=== PATIENT | male | born 1985 | race Caucasian/White ===

== ENCOUNTER 2019-07-17 09:53 | Emergency (ER) | payer OTHER, SELFPAY ==
--- NOTE | 2019-07-17 10:04 | ED.SEIZURE ---
HPI - Seizure General Chief Complaint: Seizure Stated Complaint: witnessed seizure, now a/o Time Seen by Provider: 07/17/19 10:03 Source: patient, family (brother) and EMS Mode of arrival: EMS Limitations: no limitations History of Present Illness HPI Narrative: This is a 34-year-old male comes emergency department with complaint of seizure. Seizure was witnessed by his brother he got up for the morning going to sit down on the couch and when he woke up he was surrounded by medics. His brother states that he noticed that his brother were shaking he describes or tonic-clonic activity with patient not really moving his 1 side very much. This lasted for about 5 minutes and then resolved. He describes what sounds like a postictal episode where patient knew his name but was otherwise confused and he slowly cleared and is now back to his baseline according to the patient as well as his brother who is at bedside. Patient has had 1 prior seizure about a year and a half ago. He states he has also had an ischemic stroke. He states he was on blood thinners but that was stopped by his care team. He does not take any anticonvulsants. Patient states that he does not have any complaints currently. He feels like he is back to normal does not have any injuries. He does have a small abrasion on his tongue. Patient states that he was in the and was discharged because of his medical issues. He does smoke tobacco, denies any alcohol. He does sometimes use marijuana. Denies any other new medications or medication dosage changes. He states he has been on his medication for about 2 years. He has seen a neurologist in the but has not seen them for about a year. They are at [facility]. Related Data Home Medications Medication Instructions Recorded Confirmed paroxetine HCl [Paxil] 20 mg PO BEDTIME 07/17/19 07/17/19 Allergies Allergy/AdvReac Type Severity Reaction Status Date / Time No Known Drug Allergies Allergy Verified 07/17/19 10:47 Review of Systems Review of Systems ROS Unobtainable: All systems reviewed & are unremarkable except as noted in HPI and below Constitutional Denies chills, Denies fever(s), Denies headache(s), Denies lethargy and Denies weakness Eyes Denies change in vision ENT Ears, Nose, Mouth, and Throat: Denies headache(s) and Denies tongue swelling Cardiovascular Denies chest pain and Denies dyspnea Respiratory Denies chest congestion, Denies cough and Denies dyspnea Gastrointestinal Gastrointestinal: Denies abdominal pain, Denies change in bowel habits, Denies diarrhea, Denies nausea and Denies vomiting Genitourinary Denies hematuria, Denies difficulty urinating, Denies dysuria, Denies flank pain, Denies urinary frequency, Denies urinary incontinence and Denies urinary urgency Musculoskeletal Denies back pain, Denies muscle weakness, Denies numbness and Denies tingling Integumentary/Breasts Denies rash Neurologic Reports as per HPI, Denies headache(s), Denies focal weakness, Denies numbness, Reports seizure-like activity, Denies sensory deficit, Denies tingling and Denies weakness Allergic/Immunologic Denies tongue swelling [facility] Medical History (Updated 07/17/19 @ 10:14 by Marlyn Lakhani DO) CVA (cerebral vascular accident) (Chronic) Seizure disorder (Chronic) Social History Smoking Status: Never smoker Social History (Updated 07/17/19 @ 10:08 by Marlyn Lakhani DO) Smoking Status: Never smoker alcohol intake: never substance use type: marijuana Exam Narrative Exam Narrative: GEN: well nourished, well appearing , alert and oriented x 3, patient appears to be in no acute distress. HEENT: Atraumatic, pupils are equal round reactive to light, extraocular movements are intact, nares are clear, TMs are clear with no fluid, there is no conjunctival pallor. Throat is clear without any exudates, erythema, tonsillar enlargement or uvular deviation, patient has a small abrasion on the left lateral side of the tongue. HEART: Regular rate and rhythm without murmur, clicks, rubs. Pulses are equal in upper and lower extremities LUNGS:Lungs clear to auscultation, no wheezes, rales, crackles, chest moves symmetrically ABD:bowel sounds normal, soft, non-tender, no guarding, rebound, rigidity, no masses noted, no hepatosplenomegaly MSCL: Non-tender, no muscle atrophy, muscles strength 5/5 upper and lower extremities, full range of motion, normal gait NEURO:CN 2-12 intact, sensation normal, reflexes 2/4 upper and lower extremities. finger nose finger test normal, heel johnson test normal, romberg normal Initial Vital Signs Initial Vital Signs: Vital Signs Temperature 97.8 F 07/17/19 10:08 Pulse Rate 67 07/17/19 10:08 Respiratory Rate 14 07/17/19 10:08 Blood Pressure 121/82 07/17/19 10:08 Pulse Oximetry 99 07/17/19 10:08 Scores GCS [place] coma scale eye opening: Spontaneous [place] coma scale verbal response: Orientated [place] coma scale motor response: Obey commands [place] coma scale total score: 15 Course Orders Ordered: ED Orders 07/17/19 10:04 Urine Drug Screen, Rapid Stat EKG-12 Lead Stat 07/17/19 10:25 Basic Metabolic Panel Stat Complete Blood Count AUTO DIFF Stat Ethanol (ETOH) Stat Magnesium Stat Prolactin Stat Discontinued Medications Sodium Chloride (Normal Saline 0.9%) 1,000 mls @ 1,000 mls/hr IV BOLUS ONE Stop: 07/17/19 11:02 Last Infusion: 07/17/19 11:49 Dose: 1,000 mls/hr Admin: 07/17/19 10:48 Dose: 1,000 mls/hr Vital Signs - 8 hr 07/17/19 10:30 07/17/19 11:35 Pulse Rate 76 79 Respiratory Rate 22 19 Blood Pressure [Left Arm] 108/72 114/71 Pulse Oximetry 96 98 MDM - Seizure Lab Data Result diagrams: 07/17/19 10:25 07/17/19 10:25 Lab Results 07/17/19 07/17/19 07/17/19 Range/Units 10:04 10:25 10:25 WBC 10.8 (4.5-11.0) X10^3/uL RBC 5.06 (4.5-5.9) X10^6/uL Hgb 15.6 (13.5-17.5) g/dL Hct 44.5 (41-53) % MCV 87.9 (80-100) fL MCH 30.9 (26-34) PG MCHC 35.1 (30-36) % RDW 13.1 (11.6-14.8) % Plt Count 154 (150-400) X10^3/uL Neut % (Auto) 84.9 H (50-75) % Lymph % (Auto) 7.5 L (25-40) % [place] % (Auto) 5.0 (3-14) % Eos % (Auto) 1.9 L (2-4) % Baso % (Auto) 0.7 (0-2) % Neut # (Auto) 9200 H (8844-5312) /uL Lymph # (Auto) 800 L (5983-9222) /uL [place] # (Auto) 500 (0-900) /uL Eos # (Auto) 200 (0-450) /uL Baso # (Auto) 100 (0-100) /uL Sodium (137-145) mmol/L Potassium (3.4-5.1) mmol/L Chloride (98-107) mmol/L Carbon Dioxide (22-32) mmol/L BUN (9-20) mg/dL Creatinine (0.66-1.25) mg/dL Estimated GFR (>60) mL/min BUN/Creatinine Ratio (6-22) Glucose (70-100) mg/dL Calcium (8.4-10.2) mg/dL Magnesium (1.6-2.3) mg/dL Prolactin (3.7-17.9) ng/mL Urine Opiates Screen Negative (Negative) Ur Oxycodone Screen Negative (Negative) Urine Methadone Screen Negative (Negative) Ur Barbiturates Screen Negative (Negative) U Tricyclic Antidepress Negative (Negative) Ur Phencyclidine Scrn Negative (Negative) Ur Amphetamines Screen Negative (Negative) U Methamphetamines Scrn Negative (Negative) Ur MDMA Scrn (Ecstasy) Negative (Negative) U Benzodiazepines Scrn Negative (Negative) Urine Cocaine Screen Negative (Negative) U Marijuana (THC) Screen Positive H (Negative) Ethyl Alcohol < 10 ( - 10) mg/dL 07/17/19 Range/Units 10:25 WBC (4.5-11.0) X10^3/uL RBC (4.5-5.9) X10^6/uL Hgb (13.5-17.5) g/dL Hct (41-53) % MCV (80-100) fL MCH (26-34) PG MCHC (30-36) % RDW (11.6-14.8) % Plt Count (150-400) X10^3/uL Neut % (Auto) (50-75) % Lymph % (Auto) (25-40) % [place] % (Auto) (3-14) % Eos % (Auto) (2-4) % Baso % (Auto) (0-2) % Neut # (Auto) (0136-5506) /uL Lymph # (Auto) (3832-8010) /uL [place] # (Auto) (0-900) /uL Eos # (Auto) (0-450) /uL Baso # (Auto) (0-100) /uL Sodium 139 (137-145) mmol/L Potassium 4.9 (3.4-5.1) mmol/L Chloride 105 (98-107) mmol/L Carbon Dioxide 24 (22-32) mmol/L BUN 15 (9-20) mg/dL Creatinine 0.80 (0.66-1.25) mg/dL Estimated GFR > 60.0 (>60) mL/min BUN/Creatinine Ratio 18.8 (6-22) Glucose 94 (70-100) mg/dL Calcium 9.5 (8.4-10.2) mg/dL Magnesium 2.3 (1.6-2.3) mg/dL Prolactin 9.6 (3.7-17.9) ng/mL Urine Opiates Screen (Negative) Ur Oxycodone Screen (Negative) Urine Methadone Screen (Negative) Ur Barbiturates Screen (Negative) U Tricyclic Antidepress (Negative) Ur Phencyclidine Scrn (Negative) Ur Amphetamines Screen (Negative) U Methamphetamines Scrn (Negative) Ur MDMA Scrn (Ecstasy) (Negative) U Benzodiazepines Scrn (Negative) Urine Cocaine Screen (Negative) U Marijuana (THC) Screen (Negative) Ethyl Alcohol ( - 10) mg/dL Point of Care Testing Glucose POC 133 Urine Dip Bedside Urine Glucose Negative Bedside Urine Bilirubin - Negative Bedside Urine Ketone +/- 5 Urine Specific [place] 1.030 Bedside Urine Occult Blood - Negative Bedside Urine pH 6.0 Bedside Urine Protein +/- 15 Bedside Urine Urobilinogen +/- 1mg Bedside Urine Nitrite - Negative Bedside Urine Leukocytes - Negative Esterase ECG Data Attestation: I personally reviewed and interpreted this ECG as follows: Prior ECG tracings: not available for review Interpretation: Sinus rhythm with rate of 67 [place] 167 QRS 83 and QTC 397. Patient has no acute ST changes. No prior available MDM Narrative Medical decision making narrative: Patient had what is described as generalized tonoclonic activity that was witnessed the postictal period which has since resolved. His neurologic exam is otherwise normal. He has been diagnosed with seizure disorder in the past has had prior seizures. I had possibly history of CVA and was on blood thinners but no longer is. Attempting to get some records from [facility]. Discussed with patient with a single episode of seizure-like activity and normal neurologic exam at this time could defer CT unless he has new changes. We will get labs IV fluids and re-evaluate. Discharge Plan Departure Patient Disposition: Home Clinical Impression: Seizure Discharge Date/Time: 07/17/19 11:50 Interventions: ED Discharge Assessment Last Done: 07/17/19 11:49 Instructions: DI for Seizure Disorder -- Adult Activity Restrictions/Additional Instructions: Follow up with primary care and/or your neurology team in the next week. Call for an appointment. Also included is a local neurologist if you prefer. They are based in [place]. Continue with home medications as prescribed. I would discuss this with your physician as this medication increases risk of seizure activity. Make sure you are drinking plenty of fluids, getting regular sleep and avoid stimulants, alcohol or other illicit drugs. Return to the emergency department for fevers greater than a 100.4 F, recurrent seizures particularly if you have more than 1 back to back or do not return to baseline in between, altered mental status, persistent vomiting, sudden severe headaches, new weakness, numbness, difficulty with speech or vision changes or other new or concerning symptoms. Prescriptions: No Action paroxetine HCl [Paxil] 20 mg Tablet 20 mg PO BEDTIME RF: 0 Referrals: Ac Collado MD [Non-Staff] -
[2019-07-17 10:08] VITALS: BP 121/82; PULSE 67; RESP 14; TEMP 36.6; O2SAT 99
--- NOTE | 2019-07-17 10:10 | ED_ITS ---
HPI - Seizure General Chief Complaint: Seizure Stated Complaint: witnessed seizure, now a/o Time Seen by Provider: 07/17/19 10:03 Source: patient, family (brother) and EMS Mode of arrival: EMS Limitations: no limitations History of Present Illness HPI Narrative: This is a 34-year-old male comes emergency department with complaint of seizure. Seizure was witnessed by his brother he got up for the morning going to sit down on the couch and when he woke up he was surrounded by medics. His brother states that he noticed that his brother were shaking he describes or tonic-clonic activity with patient not really moving his 1 side very much. This lasted for about 5 minutes and then resolved. He describes what sounds like a postictal episode where patient knew his name but was otherwise confused and he slowly cleared and is now back to his baseline according to the patient as well as his brother who is at bedside. Patient has had 1 prior seizure about a year and a half ago. He states he has also had an i schemic stroke. He states he was on blood thinners but that was stopped by his care team. He does not take any anticonvulsants. Patient states that he does not have any complaints currently. He feels like he is back to normal does not have any injuries. He does have a small abrasion on his tongue. Patient states that he was in the and was discharged because of his medical issues. Bridget garcia does smoke tobacco, denies any alcohol. He does sometimes use marijuana. Denies any other new medications or medication dosage changes. He states he has been on his medication for about 2 years. He has seen a neurologist in the but has not seen them for about a year. They are at [facility]. Related Data Home Medications Medication Instructions Recorded Confirmed paroxetine HCl [Paxil] 20 mg PO BEDTIME 07/17/19 07/17/19 Allergies Allergy/AdvReac Type Severity Reaction Status Date / Time No Known Drug Allergies Allergy Verified 07/17/19 10:47 Review of Systems Review of Systems ROS Unobtainable: All systems reviewed & are unremarkable except as noted in HPI and below Constitutional Denies chills, Denies fever(s), Denies headache(s), Denies lethargy and Denies weakness Eyes Denies change in vision ENT Ears, Nose, Mouth, and Throat: Denies headache(s) and Denies tongue swelling Cardiovascular Denies chest pain and Denies dyspnea Respiratory Denies chest congestion, Denies cough and Denies dyspnea Gastrointestinal Gastrointestinal: Denies abdominal pain, Denies change in bowel habits, Denies diarrhea, Denies nausea and Denies vomiting Genitourinary Denies hematuria, Denies difficulty urinating, Denies dysuria, Denies flank pain, Denies urinary frequency, Denies urinary incontinence and Denies urinary urgency Musculoskeletal Denies back pain, Denies muscle weakness, Denies numbness and Denies tingling Integumentary/Breasts Denies rash Neurologic Reports as per HPI, Denies headache(s), Denies focal weakness, Denies numbness, Reports seizure-like activity, Denies sensory deficit, Denies tingling and Denies weakness Allergic/Immunologic Denies tongue swelling [facility] Medical History (Updated 07/17/19 @ 10:14 by Marlyn Lakhani DO) CVA (cerebral vascular accident) (Chronic) Seizure disorder (Chronic) Social History Smoking Status: Never smoker Social History (Updated 07/17/19 @ 10:08 by Marlyn Lakhani DO) Smoking Status: Never smoker alcohol intake: never substance use type: marijuana Exam Narrative Exam Narrative: GEN: well nourished, well appearing , alert and oriented x 3, patient appears to be in no acute distress. HEENT: Atraumatic, pupils are equal round reactive to light, extraocular movements are intact, nares are clear, TMs are clear with no fluid, there is no conjunctival pallor. Throat is clear without any exudates, erythema, tonsillar enlargement or uvular deviation, patient has a small abrasion on the left lateral side of the tongue. HEART: Regular rate and rhythm without murmur, clicks, rubs. Pulses are equal in upper and lower extremities LUNGS:Lungs clear to auscultation, no wheezes, rales, crackles, chest moves symmetrically ABD:bowel sounds normal, soft, non-tender, no guarding, rebound, rigidity, no masses noted, no hepatosplenomegaly MSCL: Non-tender, no muscle atrophy, muscles strength 5/5 upper and lower extr emities, full range of motion, normal gait NEURO:CN 2-12 intact, sensation normal, reflexes 2/4 upper and lower extremities. finger nose finger test normal, heel johnson test normal, romberg normal Initial Vital Signs Initial Vital Signs: Vital Signs Temperature 97.8 F 07/17/19 10:08 Pulse Rate 67 07/17/19 10:08 Respiratory Rate 14 07/17/19 10:08 Blood Pressure 121/82 07/17/19 10:08 Pulse Oximetry 99 07/17/19 10:08 Scores GCS [place] coma scale eye opening: Spontaneous [place] coma scale verbal response: Orientated [place] coma scale motor response: Obey commands [place] coma scale total score: 15 Course Orders Ordered: ED Orders 07/17/19 10:04 Urine Drug Screen, Rapid Stat EKG-12 Lead Stat 07/17/19 10:25 Basic Metabolic Panel Stat Complete Blood Count AUTO DIFF Stat Ethanol (ETOH) Stat Magnesium Stat Prolactin Stat Discontinued Medications Sodium Chloride (Normal Saline 0.9%) 1,000 mls @ 1,000 mls/hr IV BOLUS ONE Stop: 07/17/19 11:02 Last Infusion: 07/17/19 11:49 Dose: 1,000 mls/hr Admin: 07/17/19 10:48 Dose: 1,000 mls/hr Vital Signs - 8 hr 07/17/19 10:30 07/17/19 11:35 Pulse Rate 76 79 Respiratory Rate 22 19 Blood Pressure [Left Arm] 108/72 114/71 Pulse Oximetry 96 98 MDM - Seizure Lab Data Result diagrams: 07/17/19 10:25 07/17/19 10:25 Lab Results 07/17/19 07/17/19 07/17/19 Range/Units 10:04 10:25 10:25 WBC 10.8 (4.5-11.0) X10^3/uL RBC 5.06 (4.5-5.9) X10^6/uL Hgb 15.6 (13.5-17.5) g/dL Hct 44.5 (41-53) % MCV 87.9 (80-100) fL MCH 30.9 (26-34) PG MCHC 35.1 (30-36) % RDW 13.1 (11.6-14.8) % Plt Count 154 (150-400) X10^3/uL Neut % (Auto) 84.9 H (50-75) % Lymph % (Auto) 7.5 L (25-40) % [place] % (Auto) 5.0 (3-14) % Eos % (Auto) 1.9 L (2-4) % Baso % (Auto) 0.7 (0-2) % Neut # (Auto) 9200 H (4729-3851) /uL Lymph # (Auto) 800 L (3009-0998) /uL [place] # (Auto) 500 (0-900) /uL Eos # (Auto) 200 (0-450) /uL Baso # (Auto) 100 (0-100) /uL Sodium (137-145) mmol/L Potassium (3.4-5.1) mmol/L Chloride (98-107) mmol/L Carbon Dioxide (22-32) mmol/L BUN (9-20) mg/dL Creatinine (0.66-1.25) mg/dL Estimated GFR (>60) mL/min BUN/Creatinine Ratio (6-22) Glucose (70-100) mg/dL Calcium (8.4-10.2) mg/dL Magnesium (1.6-2.3) mg/dL Prolactin (3.7-17.9) ng/mL Urine Opiates Screen Negative (Negative) Ur Oxycodone Screen Negative (Negative) Urine Methadone Screen Negative (Negative) Ur Barbiturates Screen Negative (Negative) U Tricyclic Antidepress Negative (Negative) Ur Phencyclidine Scrn Negative (Negative) Ur Amphetamines Screen Negative (Negative) U Methamphetamines Scrn Negative (Negative) Ur MDMA Scrn (Ecstasy) Negative (Negative) U Benzodiazepines Scrn Negative (Negative) Urine Cocaine Screen Negative (Negative) U Marijuana (THC) Screen Positive H (Negative) Ethyl Alcohol < 10 ( - 10) mg/dL 07/17/19 Range/Units 10:25 WBC (4.5-11.0) X10^3/uL RBC (4.5-5.9) X10^6/uL Hgb (13.5-17.5) g/dL Hct (41-53) % MCV (80-100) fL MCH (26-34) PG MCHC (30-36) % RDW (11.6-14.8) % Plt Count (150-400) X10^3/uL Neut % (Auto) (50-75) % Lymph % (Auto) (25-40) % [place] % (Auto) (3-14) % Eos % (Auto) (2-4) % Baso % (Auto) (0-2) % Neut # (Auto) (5292-2380) /uL Lymph # (Auto) (2452-0831) /uL [place] # (Auto) (0-900) /uL Eos # (Auto) (0-450) /uL Baso # (Auto) (0-100) /uL Sodium 139 (137-145) mmol/L Potassium 4.9 (3.4-5.1) mmol/L Chloride 105 (98-107) mmol/L Carbon Dioxide 24 (22-32) mmol/L BUN 15 (9-20) mg/dL Creatinine 0.80 (0.66-1.25) mg/dL Estimated GFR > 60.0 (>60) mL/min BUN/Creatinine Ratio 18.8 (6-22) Glucose 94 (70-100) mg/dL Calcium 9.5 (8.4-10.2) mg/dL Magnesium 2.3 (1.6-2.3) mg/dL Prolactin 9.6 (3.7-17.9) ng/mL Urine Opiates Screen (Negative) Ur Oxycodone Screen (Negative) Urine Methadone Screen (Negative) Ur Barbiturates Screen (Negative) U Tricyclic Antidepress (Negative) Ur Phencyclidine Scrn (Negative) Ur Amphetamines Screen (Negative) U Methamphetamines Scrn (Negative) Ur MDMA Scrn (Ecstasy) (Negative) U Benzodiazepines Scrn (Negative) Urine Cocaine Screen (Negative) U Marijuana (THC) Screen (Negative) Ethyl Alcohol ( - 10) mg/dL Point of Care Testing Glucose POC 133 Urine Dip Bedside Urine Glucose Negative Bedside Urine Bilirubin - Negative Bedside Urine Ketone +/- 5 Urine Specific [place] 1.030 Bedside Urine Occult Blood - Negative Bedside Urine pH 6.0 Bedside Urine Protein +/- 15 Bedside Urine Urobilinogen +/- 1mg Bedside Urine Nitrite - Negative Bedside Urine Leukocytes - Negative Esterase ECG Data Attestation: I personally reviewed and interpreted this ECG as follows: Prior ECG tracings: not available for review Interpretation: Sinus rhythm with rate of 67 [place] 167 QRS 83 and QTC 397. Patient has no acute ST changes. No prior available MDM Narrative Medical decision making narrative: Patient had what is described as generalized tonoclonic activity that was witnessed the postictal period which has since resolved. His neurologic exam is otherwise normal. He has been diagnosed with seizure disorder in the past has had prior seizures. I had possibly history of CVA and was on blood thinners but no longer is. Attempting to get some records from [facility]. Discussed with patient with a single episode of seizure-like activity and normal neurologic exam at this time could defer CT unless he has new changes. We will get labs IV fluids and re-evaluate. Discharge Plan Departure Patient Disposition: Home Clinical Impression: Seizure Discharge Date/Time: 07/17/19 11:50 Interventions: ED Discharge Assessment Last Done: 07/17/19 11:49 Instructions: DI for Seizure Disorder -- Adult Activity Restrictions/Additional Instructions: Follow up with primary care and/or your neurology team in the next week. Call for an appointment. Also included is a local neurologist if you prefer. They are based in [place]. Continue with home medications as prescribed. I would discuss this with your physician as this medication increases risk of seizure activity. Make sure you are drinking plenty of fluids, getting regular sleep and avoid stimulants, alcohol or other illicit drugs. Return to the emergency department for fevers greater than a 100.4 F, recurrent seizures particularly if you have more than 1 back to back or do not return to baseline in between, altered mental status, persistent vomiting, sudden severe headaches, new weakness, numbness, difficulty with speech or vision changes or other new or concerning symptoms. Prescriptions: No Action paroxetine HCl [Paxil] 20 mg Tablet 20 mg PO BEDTIME RF: 0 Referrals: Ac Collado MD [Non-Staff] -
[2019-07-17 10:30] VITALS: BP 108/72; PULSE 76; RESP 22; O2SAT 96
[2019-07-17 10:36] LABS: Add Manual Diff / Slide Review NO; Basophils Absolute Auto 100 /uL (0-100); Basophils Percent Auto 0.7 % (0-2); Eosinophils Absolute Auto 200 /uL (0-450); Eosinophils Percent Auto 1.9 % (2-4); Hematocrit 44.5 % (41-53); Hemoglobin 15.6 g/dL (13.5-17.5); Lymphocytes Absolute Auto 800 /uL (1100-4500); Lymphocytes Percent Auto 7.5 % (25-40); Mean Corpuscular HGB Conc 35.1 % (30-36); Mean Corpuscular Hemoglobin 30.9 PG (26-34); Mean Corpuscular Volume 87.9 fL (80-100); Monocytes Absolute Auto 500 /uL (0-900); Neutrophils Absolute Auto 9200 /uL (1500-7000); Neutrophils Percent Auto 84.9 % (50-75); Platelet Count 154 X10^3/uL (150-400); Red Blood Cell Count 5.06 X10^6/uL (4.5-5.9); Red Cell Distribution Width 13.1 % (11.6-14.8); White Blood Cell Count 10.8 X10^3/uL (4.5-11.0)
[2019-07-17 10:46] LABS: BUN Creatinine Ratio 18.8 (6-22); Blood Urea Nitrogen 15 mg/dL (9-20); Calcium 9.5 mg/dL (8.4-10.2); Carbon Dioxide 24 mmol/L (22-32); Chloride 105 mmol/L (98-107); Estimated Glomerular Filt Rate > 60.0 mL/min (>60); Ethanol (ETOH) < 10 mg/dL; Glucose 94 mg/dL (70-100); HEMOLYSIS < 15 (0-50); Magnesium 2.3 mg/dL (1.6-2.3); Potassium 4.9 mmol/L (3.4-5.1); Sodium 139 mmol/L (137-145)
[2019-07-17] MEDS: SODIUM CHLORIDE 0.9% 1,000 ML 1000 ML IV (10:48)
[2019-07-17 10:54] LABS: Urine Amphetamines Negative (Negative); Urine Barbiturates Negative (Negative); Urine Benzodiazepines Negative (Negative); Urine Cocaine Negative (Negative); Urine MDMA Negative (Negative); Urine Methadone Negative (Negative); Urine Methamphetamines Negative (Negative); Urine Morphine/Opi cutoff 2000 Negative (Negative); Urine Oxycodone Negative (Negative); Urine Phencyclidine Negative (Negative); Urine Tetrahydrocannabinol Positive (Negative); Urine Tricyclic Antidepressant Negative (Negative)
[2019-07-17 11:03] LABS: Prolactin 9.6 ng/mL (3.7-17.9)
[2019-07-17 11:35] VITALS: BP 114/71; PULSE 79; RESP 19; O2SAT 98
== END 2019-07-17 11:50 | disposition home or self-care (01) ==
LOC: ED 11:43
PROVIDERS: Emergency Provider Emergency Medicine
DX: R56.9 Unspecified convulsions (principal)
CPT/HCPCS: 36415; 80048; 80305; 80320; 81003; 83735; 84146; 85025; 93005; 96360; 99284

== ENCOUNTER 2021-03-31 00:11 | Observation (INO) | payer OTHER, MEDICAID, SELFPAY ==
[2021-03-31] VITALS (12 sets, daily range): BP systolic 135–161; BP diastolic 81–96; PULSE 53–77; RESP 14–20; TEMP 36.1–36.9; O2SAT 97–98; BMI 24.3
--- NOTE | 2021-03-31 | DI.ECHO.S_ITS ---
[facility] +---------+ : : [address] : : : : [id number] : : : : Phone: [phone] Echocardiogram Report + + :Name: MARI EUGENE Study Date: 03/31/2021 Height: 67 in : :[facility] ReadingLocation: Weight: 155 lb : : Gender: Male BSA: 1.8 m2 : :: 1985 Age: 36 yrs BP: 139/82 mmHg: :Reason For Study: stroke : :Ordering Physician: JUAN DAVID, : :YENNY Performed By: Vlad Alberto : :Referring: YENNY FALL : + + Interpretation Summary Left ventricular systolic function appears normal with an estimated ejection fraction of 60 to 65% without any focal wall motion abnormality. Left ventricular size and wall thickness appear normal. While assessment of diastolic function is challenging because of contradictory data, there is no compelling evidence for significantly increased filling pressures or diastolic dysfunction. The right ventricle appears normal in size and systolic function. Right ventricular systolic pressure cannot be estimated but CVP is likely around 3 mmHg. Both atria are normal in size and the interatrial septum appears intact without any evidence for an interatrial shunt by Doppler exam or injection of echo saline contrast although there is fairly poor contrast opacification, reducing the sensitivity of the study. There is no significant valvular abnormality. Procedure: The study quality was technically adequate. A two-dimensional transthoracic echocardiogram with color flow and Doppler was performed. There is no prior echocardiogram noted for this patient. The patient was in sinus rhythm with heart rates between 62-85 bpm during the exam. Left Ventricle: The left ventricle appears normal in size, wall thickness, and systolic function without any focal wall motion abnormalities. The ejection fraction is estimated to be 60-65%. Diastolic function could not be accurately assessed due to contradictory data. Right Ventricle: The right ventricle is normal in size and function. Atria: Both atria are normal in size. There is no Doppler evidence for an interatrial shunt. Injection of contrast documented no interatrial shunt. Although there is fairly poor contrast opacification reducing the sensitivity of the study. Mitral Valve: There is trace mitral regurgitation. Aortic Valve: The aortic valve is normal in structure and function. The aortic valve is trileaflet. The aortic valve opens well. No aortic regurgitation is present. Tricuspid Valve: The tricuspid valve is normal in structure and function. No tricuspid regurgitation. Pulmonary artery pressures cannot be estimated because of the lack of a measurable TR jet velocity but the IVC suggests a CVP of around 3 mmHg. Pulmonic Valve: The pulmonic valve is not well seen, but is grossly normal. There is no pulmonic valvular regurgitation. There is no significant valvular heart disease. Great Vessels: The aortic root is normal size. The dimensions of the ascending aorta are normal. The IVC is of normal diameter and collapses greater than 50% with a sniff. This suggests a low right atrial pressure of 3 mm Hg. Pericardium/ Pleura There is no pericardial effusion. There is no pleural effusion. MMode/2D Measurements & Calculations LVIDd: 5.0 cm LVOT diam: 2.4 cm LVIDs: 3.7 cm Ao root diam: 3.1 cm FS: 26.4 % asc Aorta Diam: 2.7 cm IVSd: 0.91 cm LVPWd: 0.97 cm LV qu[place]edo. diameter/BSA (cm/m^2): 2.8 LV sys. diameter/BSA (cm/m^2): 2.0 LA A2 area: 13.1 cm2 RA area: 12.5 cm2 LA A4 area: 14.5 cm2 LA length (vol): 4.0 cm LA vol: 40.0 ml LA vol index: 22.0 ml/m2 TAPSE: 1.7 cm Doppler Measurements & Calculations Ao V2 max: 103.0 cm/sec LVOT Max Mario Alberto: 83.9 cm/sec Ao V2 mean: 78.1 cm/sec LV V1 max P.8 mmHg Ao max P.2 mmHg LV V1 VTI: 18.2 cm Ao mean P.6 mmHg BECCA(I,D): 3.8 cm2 Ao V2 VTI: 21.6 cm BECCA(V,D): 3.7 cm2 sev ratio: 0.84 BECCA indexed to BSA (cm^2/m^2): 2.1 MV E max mario alberto: 125.4 cm/sec PA pr(Accel): 32.8 mmHg MV A max mario alberto: 128.8 cm/sec MV E/A: 0.97 Med Peak E' Mario Alberto: 6.1 cm/sec E/E' med: 20.4 Lat Peak E' Mario Alberto: 9.3 cm/sec E/E' lat: 13.5 E/e' average: 17.0 MV dec time: 0.31 sec [facility] 82.5 ml Reading Physician:01:15 PM
--- NOTE | 2021-03-31 01:19 | DI.CT.S_ITS ---
PROCEDURE: CT ANGIO HEAD AND NECK INDICATIONS: stroke symptoms, Right side numbness/dysarthria at 11:15 TECHNIQUE: Pre-contrast 4.5 mm thick sections acquired from the foramen magnum to the vertex. After the administration of intravenous contrast, 1 mm thick sections acquired from the aortic arch through the [place]. Post-contrast 4.5 mm thick sections then re-acquired from the foramen magnum to the vertex. 3-dimensional dpbkhsy-uwjmqxnbq-dsdmmgcrts (MIP) and/or volume rendering reformats were acquired of the central intracranial vasculature and neck separately. COMPARISON: None. FINDINGS: Image quality: Excellent. BRAIN: CSF spaces: Basal cisterns are patent. No extra-axial fluid collections. There is prominence of the sulci and extra-axial spaces as well as mild prominence of the ventricles consistent with mild cerebral volume loss out of proportion to patient's age. Brain: No intracranial hemorrhage, mass, or mass effect. There are small areas of encephalomalacia medially in the left frontal and occipital lobes. Slight leftward midline shift is noted likely due to left frontal cerebral volume loss. No definite abnormal intracranial enhancement. Skull and face: Calvarium and facial bones appear intact, without suspicious lesions. Orbits appear normal. Sinuses: Sinuses and mastoids are clear. HEAD CT ANGIOGRAPHY: Anterior circulation: Intracranial internal carotid arteries are normal in size and appear patent bilaterally. There is mild atherosclerotic calcification along the cavernous segments of the internal carotid arteries. The paired anterior cerebral arteries appear patent bilaterally. The anterior communicating artery also appears patent. The middle cerebral arteries appear patent bilaterally. No high-grade stenosis, occlusion, or filling defects. No cerebral aneurysms identified. The vessels appears smooth without focal strictures. Posterior circulation: Visualized portions of the vertebral arteries demonstrate normal caliber, and join to form a patent basilar artery. The posterior cerebral arteries appears patent bilaterally. No high-grade stenosis, occlusion, or filling defects. No cerebral aneurysms identified. NECK CT ANGIOGRAPHY: Carotid system: The great vessels demonstrate a conventional anatomy as they arise from the aortic arch. The origins of the common carotid arteries appear patent. The common carotid arteries demonstrate normal caliber and courses. The bifurcation regions are both widely patent. The internal carotid arteries demonstrate normal calibers and courses. The vessels appears smooth without focal strictures or wall thickening. Posterior circulation: The origins of the vertebral arteries both appear patent. The more superior extracranial portions of both vertebral arteries also demonstrate normal courses and calibers. They join to form a patent basilar artery. Vessels appears smooth throughout focal strictures or wall thickening. Soft tissues: Visualized neck soft tissues demonstrate no suspicious abnormalities. Bones: No suspicious bony lesions. Visualized cervical spine appears normally aligned. IMPRESSION: 1. No acute intracranial abnormality. 2. Medial areas of encephalomalacia within the left frontal and occipital lobes compatible with sequelae of prior infarcts or trauma. 3. Mild generalized cerebral volume loss out of proportion for age. 4. No high-grade stenosis or occlusion of the central intracranial arteries. No vascular strictures to suggest a vasculitis. 5. No high-grade stenosis or occlusion of the head and neck arteries. No vascular structures or wall thickening to suggest a vasculitis. Any quantitative measurements of stenosis were performed using NASCET criteria. Concordant with preliminary interpretation. Dictated by: Efraín Grigsby M.D. on 03/31/2021 at 8:07 Approved by: Efraín Grigsby M.D. on 03/31/2021 at 8:15
--- NOTE | 2021-03-31 01:21 | ED.NEUROSD ---
HPI - Neuro Symptoms/Deficit General Chief Complaint: Neuro Symptoms/Deficit Stated Complaint: poss stroke Time Seen by Provider: 03/31/21 00:11 Source: patient and EMS Mode of arrival: EMS Limitations: no limitations History of Present Illness HPI Narrative: 36-year-old gentleman with a history of multiple strokes in 2017 and stroke related epilepsy developing in 2019 currently on lacosamide 300 mg twice a day presents with 3 minutes of left-sided facial droop, dysarthria, left arm and leg weakness, dizziness and right adventist headache. Symptoms were noted immediately by his caregiver and medics were called. Caregiver notes that he did not have any seizure-like activity at the time and he had been doing well, at his usual baseline over the course of today. No fever, cough, chills, increased stressors or missed medication doses. They do note that after the original seizures in 2017 he does have some verbal difficulties as well as cognitive deficits and is unable to hold a job because of that. He was initially treated at [facility] and follows up with the [facility]. His last grand mal seizure was approximately 6 months ago. Related Data Home Medications Medication Instructions Recorded Confirmed paroxetine HCl [Paxil] 20 mg PO BEDTIME 07/17/19 07/17/19 Allergies Allergy/AdvReac Type Severity Reaction Status Date / Time No Known Drug Allergies Allergy Verified 07/17/19 10:47 Review of Systems Review of Systems Narrative: Remainder of complete review of systems is otherwise unremarkable except for that included in the HPI. Patient History Medical History CVA (cerebral vascular accident) Seizure disorder Social History Smoking Status: Current every day smoker alcohol intake: never substance use type: marijuana Smoking Status: Current every day smoker alcohol intake frequency: 0-2 drinks per day Substance Use Type: marijuana Exam Narrative Exam Narrative: General: Healthy appearing, in no acute distress. Memory deficits but fluent speech. Well-nourished well-developed HEENT: Moist mucous membranes, normal sclera with reactive pupils, atraumatic and normocephalic Respiratory: Lungs are clear to auscultation, no wheezing no rales no rhonchi. Full and symmetrical air movement Cardiac: Regular rate and rhythm no murmurs no bruits Abdomen: Soft, nontender, good bowel tones, no flank pain Skin: Warm and dry, no rashes Neurologic: Grossly neurologically intact with no obvious asymmetries or abnormalities. He describes slight decreased sensation to his right cheek but not the forehead her chin. Normal sensation to upper extremities and lower extremities but feels like his right leg is perhaps heavier than his left. His NIH score is 0 Extremities: No trauma, well perfused Psych: Cooperative, baseline cognitive deficits, no evidence of hallucination Initial Vital Signs Initial Vital Signs: Vital Signs Pulse Rate 74 03/31/21 00:13 Respiratory Rate 16 03/31/21 00:13 Blood Pressure 135/96 H 03/31/21 00:13 Pulse Oximetry 98 03/31/21 00:13 Course Orders Ordered: ED Orders 03/31/21 EKG-12 Lead Stat 03/31/21 00:20 Complete Blood Count AUTO DIFF Stat Comprehensive Metabolic Panel Stat 03/31/21 01:18 Urine Drug Screen, Rapid Stat 03/31/21 01:19 CT angio head and neck Stat 03/31/21 02:49 COVID19 - ADMIT (RESEARCH INTERVIEWER swab/PCR) Stat Vital Signs Vital signs: Vital Signs - 8 hr 03/31/21 00:13 03/31/21 00:19 03/31/21 00:30 Temperature 98.5 F Pulse Rate 74 77 67 Respiratory Rate 16 16 17 Blood Pressure 135/96 H 135/96 H 151/88 H Pulse Oximetry 98 97 97 03/31/21 01:00 03/31/21 01:57 03/31/21 02:00 Temperature Pulse Rate 58 L 58 L 55 L Respiratory Rate 19 14 17 Blood Pressure 145/81 H 151/88 H 150/96 H Pulse Oximetry 97 98 97 MDM - Neuro Symptoms/Deficit Medical Records Attestation: I reviewed the patient's medical records. Lab Data Attestation: I reviewed the patient's lab results. Result diagrams: 03/31/21 00:20 03/31/21 00:20 Labs: Lab Results 03/31/21 03/31/21 Range/Units 00:20 00:20 WBC 7.9 (4.5-11.0) X10^3/uL RBC 4.72 (4.5-5.9) X10^6/uL Hgb 14.6 (13.5-17.5) g/dL Hct 42.5 (41-53) % MCV 90.0 (80-100) fL MCH 31.0 (26-34) PG MCHC 34.4 (30-36) % RDW 12.8 (11.6-14.8) % Plt Count 159 (150-400) X10^3/uL Neut % (Auto) 57.4 (50-75) % Lymph % (Auto) 27.8 (25-40) % [place] % (Auto) 6.7 (3-14) % Eos % (Auto) 6.8 H (2-4) % Baso % (Auto) 1.3 (0-2) % Neut # (Auto) 4500 (5741-3773) /uL Lymph # (Auto) 2200 (8009-1725) /uL [place] # (Auto) 500 (0-900) /uL Eos # (Auto) 500 H (0-450) /uL Baso # (Auto) 100 (0-100) /uL Sodium 138 (137-145) mmol/L Potassium 3.7 (3.4-5.1) mmol/L Chloride 106 (98-107) mmol/L Carbon Dioxide 24 (22-32) mmol/L BUN 12 (9-20) mg/dL Creatinine 0.73 (0.66-1.25) mg/dL Estimated GFR > 60.0 (>60) mL/min BUN/Creatinine Ratio 16.4 (6-22) Glucose 98 (70-100) mg/dL Calcium 9.0 (8.4-10.2) mg/dL Total Bilirubin 0.3 (0.2-1.3) mg/dL AST 36 (17-59) IU/L ALT 16 (<50) IU/L Alkaline Phosphatase 29 L (38-126) U/L Total Protein 7.3 (6.3-8.2) g/dL Albumin 4.3 (3.5-5.0) g/dL Globulin 3.0 (1.7-4.1) g/dL Albumin/Globulin Ratio 1.4 (1.0-2.8) Urine Dip Bedside Urine Glucose Negative Bedside Urine Bilirubin - Negative Bedside Urine Ketone - Negative Urine Specific [place] 1.025 Bedside Urine Occult Blood - Negative Bedside Urine pH 6.0 Bedside Urine Protein +/- 15 Bedside Urine Urobilinogen - Negative Bedside Urine Nitrite - Negative Bedside Urine Leukocytes - Negative Esterase MDM Narrative Medical decision making narrative: 36-year-old gentleman with a history of prior stroke and seizure with 3 minutes of left-sided deficit and NIH score of 0 by time of arrival in the emergency department. Because symptoms have entirely resolved and diagnosis is not completely clear, tPA is not indicated CTA is obtained to make sure there is not a large vessel occlusion and will continue with remainder of workup. Possibility of seizure certainly remains in the differential. Will plan on admission for TIA continued workup with need for MRI. Care is reviewed with Isatu Roman hospitalist this evening. Recommendations reviewed with patient and his caregiver both are agreeable with the idea of hospital admission for further observation seeping. He is safe for admission to the floor Discharge Plan Departure Patient Disposition: Admitted as Observation Clinical Impression: Brain TIA Admit Date/Time: 03/31/21 02:50 Admit Provider: Isatu Roman
[2021-03-31 01:30] LABS: Add Manual Diff / Slide Review NO; Basophils Absolute Auto 100 /uL (0-100); Basophils Percent Auto 1.3 % (0-2); Eosinophils Absolute Auto 500 /uL (0-450); Eosinophils Percent Auto 6.8 % (2-4); Hematocrit 42.5 % (41-53); Hemoglobin 14.6 g/dL (13.5-17.5); Lymphocytes Absolute Auto 2200 /uL (1100-4500); Lymphocytes Percent Auto 27.8 % (25-40); Mean Corpuscular HGB Conc 34.4 % (30-36); Monocytes Absolute Auto 500 /uL (0-900); Monocytes Percent Auto 6.7 % (3-14); Neutrophils Absolute Auto 4500 /uL (1500-7000); Neutrophils Percent Auto 57.4 % (50-75); Platelet Count 159 X10^3/uL (150-400); Red Blood Cell Count 4.72 X10^6/uL (4.5-5.9); Red Cell Distribution Width 12.8 % (11.6-14.8); White Blood Cell Count 7.9 X10^3/uL (4.5-11.0)
[2021-03-31 01:34] LABS: Alanine Aminotransferase 16 IU/L (<50); Albumin 4.3 g/dL (3.5-5.0); Albumin Globulin Ratio 1.4 (1.0-2.8); Alkaline Phosphatase 29 U/L (38-126); Aspartate Aminotransferase 36 IU/L (17-59); BUN Creatinine Ratio 16.4 (6-22); Bilirubin Total 0.3 mg/dL (0.2-1.3); Blood Urea Nitrogen 12 mg/dL (9-20); Carbon Dioxide 24 mmol/L (22-32); Chloride 106 mmol/L (98-107); Estimated Glomerular Filt Rate > 60.0 mL/min (>60); Glucose 98 mg/dL (70-100); HEMOLYSIS 24 (0-50); Potassium 3.7 mmol/L (3.4-5.1); Sodium 138 mmol/L (137-145); Total Protein 7.3 g/dL (6.3-8.2)
--- NOTE | 2021-03-31 03:17 | DI.MRI.S_ITS ---
PROCEDURE: MR STROKE Pre- and post-contrast brain MRI, non-contrast brain MR angiogram, pre- and postcontrast neck MR angiogram INDICATIONS: TIA, hx of CVA X 7 TECHNIQUE: Brain: Noncontrast axial T1 spin echo, axial T2 fast spin echo, sagittal and axial FLAIR, coronal T2 fast spin echo, axial gradient echo, axial diffusion and ADC through the brain. After the administration of contrast, axial 3D VIBE of the cranial vasculature and brain. Brain MRA: Non-contrast 3-D time of flight MR angiogram, with multiple iwysaci-lupqxlocf-vnzmgcbrku (MIP) reformats performed. Neck MRA: Axial and sagittal TruFISP through the neck. Coronal dynamic MR angiogram during administration of contrast in the arterial and venous phases, with 3-dimenstional pslfvsa-nrlbgbxxe-sfnorebuhe (MIP) reformats constructed from subtraction images. COMPARISON: [facility], CT, CT ANGIO HEAD AND NECK, 03/31/2021, 1:25. FINDINGS: Image quality: Excellent. BRAIN: CSF spaces: Ventricles are normal in size and shape. Basal cisterns are patent. No extra-axial fluid collections. Brain: No intracranial bleeds or mass effects. Small chronic infarcts within the left anterosuperior frontal lobe, left cerebellar hemisphere, and left posteromedial occipital lobe, as before, consistent with the given history chronic infarct. Mild degree of patchy high FLAIR signal within the periventricular and subcortical white matter, consistent with small vessel ischemic disease. There is mild to moderate diffuse cerebral volume loss, preferentially involving the left frontal lobe. There is associated 6 mm of leftward midline shift. [place]-white matter interface is normal. Diffusion weighted images show no acute ischemic insults. Brainstem appears normal. Normal intravascular flow voids are present. No abnormal intracranial enhancement. Skull and face: Calvarial marrow signal is normal. Orbits appear normal. Sinuses: Moderate ethmoid sinus mucosal thickening bilaterally. Sinuses and mastoids are otherwise clear. BRAIN MR ANGIOGRAM: Anterior circulation: Intracranial internal carotid arteries are normal in size and enhancement. The flow within the paired anterior cerebral arteries is normal and symmetric. The flow within the middle cerebral arteries is normal and symmetric. The anterior communicating artery is seen. No stenoses, occlusions, or aneurysms. Posterior circulation: The visualized portions of the vertebral arteries demonstrate normal caliber, and join to form a normal appearing basilar artery. The flow within the posterior cerebral arteries is normal and symmetric. No stenoses, occlusions, or aneurysms. NECK MR ANGIOGRAM: Carotids: Great vessels demonstrate a conventional anatomy as they arise from the aortic arch. The origins of the common carotid arteries appear patent. The calibers and courses of both common carotid arteries are normal. The bifurcation regions appear normal bilaterally. The internal carotid arteries demonstrate normal course and caliber. Posterior circulation: The origins of the vertebral arteries appear patent. More superior portions of both vertebral arteries demonstrate normal course and caliber, and join to form a normal appearing basilar artery. Miscellaneous: Subclavian arteries appear patent. Pre-contrast images through the neck show no soft tissue abnormalities. IMPRESSION: BRAIN MRI: 1. No acute process. No recent infarct. 2. Small chronic left frontal, left cerebellar, and occipital lobe infarcts. 3. Cerebral volume loss, preferentially involving the left frontal lobe, with associated leftward midline shift. 4. Mild small vessel ischemic disease. 5. Sinus disease. BRAIN MR ANGIOGRAM: Negative cerebral MR angiography NECK MR ANGIOGRAM: 1. No internal carotid artery stenosis bilaterally. 2. Patent bilateral vertebral arteries. Dictated by: Tiera Wylie M.D. on 03/31/2021 at 10:35 Approved by: Tiera Wylie M.D. on 03/31/2021 at 10:42
--- NOTE | 2021-03-31 03:25 | P.HP_ITS ---
History of Present Illness History of Present Illness Date Patient Seen: 03/31/21 Time Patient Seen: 03:00 Chief complaint: Suspected TIA in a patient with 7 previous CVAs Narrative: Hugo Carrasco is an unfortunate 36 y.o. male with a history of having had 7 CVAs starting in 2017 followed by the development of a seizure disorder in 2019, presented after his ex- and caregiver noted that he had slurred speech, left arm numbness, and thought he had a facial droop to the left. She said that the patient had complained of a tingly sensation on the right side of his face. He later informed me that he had a mild headache which preceeded the other symptoms of left sided weakness and tingling. Much of the history is provided by Cony, his caregiver and ex- as the patient has some cognitive deficits and does not recall what happened. He does deny having a headache upon arrival, visual changes, difficulty swallowing, nausea or vomiting, dysuria or urinary incontinence, diarrhea constipation. Per his caregiver he had a significant CVA in 2017 and has had a total of 7 of which 3 were severe. She stated that in 2019 he started to develop a seizure disorder and has been followed by Dr. Mendoza at the [place] in [place]. The patient currently does not have a PCP. The strokes occurred while he was in the and he was treated at [facility]. 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 He denies having a head injury, but stated he fell when he was 5 and requiered stitches on top of his head. CT ordered in the ED indicated ?Involutional changes out of proportion to the patient's age. Left frontal and left occipital encephalomalacic changes consistent with old trauma or old infarcts.? Patient is afebrile, blood pressu re 159/81, heart rate 58, respiratory rate 20, oxygen saturation 98% on room air he weighs 70.3 kg with a BMI of 24.3. WBC is unimpressive, chemistry is within normal limits, hemoglobin A1c is 4.9, and COVID-19 PCR is negative. Patient History Medical History (Updated 03/31/21 @ 04:22 by KIRA Baldwin) Adopted CVA (cerebral vascular accident) Seizure disorder Surgical History (Updated 03/31/21 @ 04:22 by KIRA Baldwin) H/O inguinal hernia repair H/O umbilical hernia repair Family & Social History Family History (Updated 03/31/21 @ 04:23 by KIRA Baldwin) Grandmother CVA (cerebral vascular accident) Myocardial infarction Safety & Behavioral: Feels Safe in Current Yes Environment Tobacco & Substance use: Smoking Status Current every day smoker alcohol intake never alcohol intake frequency 0-2 drinks per day Substance Use Type marijuana Meds Home Medications and Allergies Home Medications Medication Instructions Recorded Confirmed Type paroxetine HCl [Paxil] 20 mg PO BEDTIME 07/17/19 07/17/19 History Allergies Allergy/AdvReac Type Severity Reaction Status Date / Time No Known Drug Allergies Allergy Verified 07/17/19 10:47 Review of Systems Review of Systems ROS: Yes All systems reviewed with the patient and are negative except as otherwise documented Exam Vital Signs (past 8 hours): - 03/31/21 00:13 03/31/21 00:19 03/31/21 00:30 Temperature 98.5 F Pulse Rate 74 77 67 Respiratory Rate 16 16 17 Blood Pressure 135/96 H 135/96 H 151/88 H Pulse Oximetry 98 97 97 03/31/21 01:00 03/31/21 01:57 03/31/21 02:00 Temperature Pulse Rate 58 L 58 L 55 L Respiratory Rate 19 14 17 Blood Pressure 145/81 H 151/88 H 150/96 H Pulse Oximetry 97 98 97 03/31/21 03:02 Temperature Pulse Rate 58 L Respiratory Rate 20 Blood Pressure 159/91 H Pulse Oximetry 98 Oxygen Delivery Method Room Air Narrative Exam Narrative: Gen: Alert, oriented, well-developed 36 y.o. male, NAD HEENT: normocephalic, atraumatic, conjunctiva clear, sclera non-icteric, oral mucosa pink and moist Neck: supple, full ROM, no JVD, trachea is midline Resp: Lungs CTA, non-labored breathing CV: RRR, no murmur or rubs Abd: soft, non-tender, normoactive BTs Skin: both arms with multiple tatoos, no lesions or rashes, dry and intact Neuro: NIH score: 0, has a slight lisp, unknown if baseline, alert and oriented X 4 w/no focal deficits. Extremities: moves all 4 extremities, is ambulatory, negative Gustavo?s sign Psyche: normal mood and affect. Objective Labs Result Diagrams: 03/31/21 00:20 03/31/21 00:20 Labs: Laboratory Results - last 24 hr 03/31/21 03/31/21 00:20 00:20 WBC 7.9 RBC 4.72 Hgb 14.6 Hct 42.5 MCV 90.0 MCH 31.0 MCHC 34.4 RDW 12.8 Plt Count 159 Neut % (Auto) 57.4 Lymph % (Auto) 27.8 [place] % (Auto) 6.7 Eos % (Auto) 6.8 H Baso % (Auto) 1.3 Neut # (Auto) 4500 Lymph # (Auto) 2200 [place] # (Auto) 500 Eos # (Auto) 500 H Baso # (Auto) 100 Sodium 138 Potassium 3.7 Chloride 106 Carbon Dioxide 24 BUN 12 Creatinine 0.73 Estimated GFR > 60.0 BUN/Creatinine Ratio 16.4 Glucose 98 Calcium 9.0 Total Bilirubin 0.3 AST 36 ALT 16 Alkaline Phosphatase 29 L Total Protein 7.3 Albumin 4.3 Globulin 3.0 Albumin/Globulin Ratio 1.4 Assessment & Plan Assessment & Plan narrative: Hugo Carrasco will be observed for further evaluation of a TIA vs CVA. Suspected TIA versus stroke, acute, present on admission -Cardiac telemetry -NIH score: yes -NIH scoring and neuro checks q 8 hours -Dual antiplatelet therapy: Yes initiate clopidogrel 75 mg p.o. daily and aspirin 81 mg p.o. daily -MR stroke scheduled for today. -Complete Echo with bubble study for today -PT/OT/ST evaluation Hypertension, acute with an admission bp of 135/96, present on admission -Allow for permissive hypertension of 220/110 HR 60 to allow for brain perfusion HLD -Lipid panel, pending -Atorvastatin 40 mg po at bedtime Risk stratification -Fasting lipid panel pending for the morning -A1c 4.9% Seizure disorder, stable -Patient will continue home dose of Lacosimide 300 mg po bid, family to bring in early am for pharmacy to verify as his first dose is at 0900. VTE prophylaxis: Wells risk score: 0 Enoxaparin 40 mg subQ daily Consults: none Patient is observation status as his stay is not likely to exceed 2 midnights. FEN: saline lock, heart healthy diet, no salt added, BMP and magnesium in the am. Dispo: Probable discharge to home w/outpatient followup Code Status: Full code as discussed with patient Leisa, surrogate Scores Eduardo' Criteria for PE Clinical signs and symptoms of DVT: No PE is #1 Dx or equally likely: No Heart rate > 100: No Immobilization at least 3 days or surg in previous 4 weeks: No History of PE or DVT: No Hemoptysis: No Malignancy w/Treatment within 6 months or palliative: No Wells' PE Score total: 0
[2021-03-31 03:39] LABS: Hemoglobin A1C% w Est Avg Glu 4.9 % (4.0-6.0)
[2021-03-31 03:55] LABS: COVID19 - ADMIT (NP swab/PCR) Negative (Negative)
[2021-03-31 05:02] LABS: Cholesterol 204 mg/dL (140-199); HDL Cholesterol 47 mg/dL (40-60); LDL Cholesterol Calculated 97 mg/dL (<100)
[2021-03-31 05:05] LABS: Triglycerides 301 mg/dL (35-150)
[2021-03-31 06:19] LABS: UR Morphine/Opiate cutoff 300 Negative (Negative); Ur Creatinine 50 (Normal); Ur Specific Gravity 1.015 (Normal); Urine Amphetamines Negative (Negative); Urine Barbiturates Negative (Negative); Urine Benzodiazepines Negative (Negative); Urine Cocaine Negative (Negative); Urine MDMA Negative (Negative); Urine Methadone Negative (Negative); Urine Methamphetamines Negative (Negative); Urine Oxycodone Negative (Negative); Urine Phencyclidine Negative (Negative); Urine Tetrahydrocannabinol Positive (Negative); Urine Tricyclic Antidepressant Negative (Negative); Urine pH 7 (Normal)
[2021-03-31] MEDS: ASPIRIN EC 81 MG TABLET PO (08:30)
[2021-03-31] MEDS: SODIUM CHLORIDE 0.9% FLUSH 10 ML IV (08:30)
[2021-03-31] MEDS: ENOXAPARIN 40 MG/0.4 ML SYRINGE SUBCUT (08:30)
[2021-03-31] MEDS: CLOPIDOGREL 75 MG TABLET PO (08:30)
[2021-03-31] MEDS: LACOSAMIDE 300 MG 300 EACH PO (09:01)
--- NOTE | 2021-03-31 10:44 | CM.DANOTE ---
Addendum entered by Ale Finnegan LPN 03/31/21 13:26: PT did see pt today. Noted baseline of independence without assistive device and pt at current baseline know. Beata noted no concerns and has d/c'd pt from Pt. P: anticipate home when stable for same.....will follow. Admission status: confirmed by UR DIPAK Hightower as OBS Original Note: Discharge Planning/Care Management DCP: assessment: case received and met with pt during Team Bedside Rounds. He had just returned from having an MRI. Stayed on afterwards for more discussion. Pt is a 37 year old male who admitted early this mornin to care of hospitalist team. Payer: [facility]Medicaid. pt reports that he has been under VA coverage for many years and this lapsed when he did not fill out paperwork in a timely way. He says Cony is in process of helping him get this restored. Typically he follows primarily with a neurologist at the [facility] in [place]. He has a PCP that he has been assigned to but has not seen this person and does not know the name. LEMON PICKER did see pt today. Dr. Alicea explained that workup is in process. The complexity of his medical history including multiple CVAs and now this current event and the addition of a seizure disorder that developed after the CVAs. P: dependent on findings going foreward...DCP team will be following. CM Discharge Assessment Start: 03/31/21 10:40 Freq: Status: Active Protocol: Document 03/31/21 10:40 ITV (Rec: 03/31/21 10:44 ITV [id number]) Discharge Planning Assessment Advance Directives? No History Provided By Patient,Medical Record Has Patient been admitted in last 30 No days? Prior Living Arrangements House Comment lives with his ex and friend Cony Leonard: [phone] Independent with ADL's relies on Cony for supportive care Is patient alert and oriented? Yes
--- NOTE | 2021-03-31 10:55 | PC.NURSE ---
Student was present during speech therapy eval. Short-term memory loss was noticed.
--- NOTE | 2021-03-31 11:40 | PT.IIE ---
Surgical History (Last Updated 03/31/21 @ 04:22 by KIRA Baldwin) H/O inguinal hernia repair H/O umbilical hernia repair Medical History (Last Updated 03/31/21 @ 04:22 by KIRA Baldwin) Adopted CVA (cerebral vascular accident) Seizure disorder Physical Therapy Inpatient Evaluation/Re-Eval M1 PT/OT-IP Prior Functional Status Start: 03/31/21 12:51 Freq: NEEDED Status: Active Protocol: Document 03/31/21 11:40 AB (Rec: 03/31/21 13:06 [facility] Medical Review Prior Functional Status Medical History Reviewed Yes Communication able to make needs known Mobility and Gait pt stated that he is independent with all mobilities and ambulation without AD Social History Household Members children,friend(s) Living Arrangements RV Number of Floors (Floors) One Floor Number of Stairs To Enter/Railing? pt stated that he lives on a trailer and has 3 steps with B rail to enter Home Environment Standard Height Toilet,Tub/ Shower Home Equipment Hand Held Shower Additional Social History Comment stated that his ex- is his caregiver M2 PT-IP Current Condition Start: 03/31/21 12:51 Freq: NEEDED Status: Active Protocol: Document 03/31/21 11:40 AB (Rec: 03/31/21 13:06 [facility] Physical Therapy Current Condition Current Condition Evaluation Date 03/31/21 Treatment Diagnosis TIA; difficulty in walking Onset Date 03/31/21 Precautions Other Precautions seizure precaution M3 PT-IP Subjective Start: 03/31/21 12:51 Freq: NEEDED Status: Active Protocol: Document 03/31/21 11:40 AB (Rec: 03/31/21 13:06 [facility] Subjective Physical Therapy Visit Type Type Initial Evaluation Visit Start Time 11:40 Visit Stop Time 12:00 Total Visit Minutes 20 Number of PATROL SUPERVISOR Visits 0 Physical Therapy Visit Comments Patient Comments pt is agreeable to do PT Therapy Pain Assessment Pain Present Pain Present Denied Pain M4 PT-IP Mobility and Gait Start: 03/31/21 12:51 Freq: NEEDED Status: Active Protocol: Document 03/31/21 11:40 AB (Rec: 03/31/21 13:06 AB [email or web address]) PT-Bed Mobility Assessment Supine to Sit Supine to Sit Independent Sit to Supine Sit to Supine Independent PT-Transfer Assessment Sit to and From Stand Sit to and from Stand Independent Equipment Transfer Assistive Device None,Gait Belt Orthotic/Prosthetic Devices or Brace: No Gait Assessment Gait Gait Assistance Required: Independent Distance (Feet) 300 Able to Maintain Weight Bearing Status Yes During Gait Assistive Devices Assistive Device None,Gait Belt Orthotic/Prosthetic Devices or Brace: No Gait Deviations General Gait Pattern Within Normal Limits Stair Climbing Assessment Evaluation Level of Assist On Stairs Independent Devices Stair Climbing Assistive Devices None Technique/Endurance Stair Climbing Direction Ascend and Descend Stair Climbing Technique Step Over Step Number of Steps Climbed 3 Query Text: Stair Climbing Set # Repetitions (reps) 1 PT-Balance Assessment Sitting Balance and Reactions Static Sitting Balance Ability Normal Dynamic Sitting Balance Ability Normal Standing Balance and Reactions Static Standing Balance Ability Good Dynamic Standing Balance Ability Good Device Used without AD Functional Assessments Functional Tests Tinetti Balance and Gait Assessment bal score: gait score: 10/06 total: 27/28 Other Functional Tests Performed tinetti balance assessment: total score 27/28: pt is at low fall risk M5 PT-IP Objective Assessments Start: 03/31/21 12:51 Freq: NEEDED Status: Active Protocol: Document 03/31/21 11:40 AB (Rec: 03/31/21 13:06 AB [id number]) Orientation Orientation/Cognition Level of Alertness Alert Orientation Name,Place,Situation Safety Awareness Understands Safety Issues Memory Description No Deficits Noted Gross Range of Motion Lower Extremity ROM Assessment Within Functional Limits Strength Lower Extremity Strength Assessment Within Functional Limits Sensation Assessment Sensation Gross Sensation WNL Muscle Tone Muscle Tone WNL Yes M6 PT-IP Treatment Start: 03/31/21 12:51 Freq: NEEDED Status: Active Protocol: Document 03/31/21 11:40 AB (Rec: 03/31/21 13:06 AB [email or web address]) Physical Therapy Treatment Education Education Provided Safety M7 PT-IP Assessment and Plan Start: 03/31/21 12:51 Freq: NEEDED Status: Active Protocol: Document 03/31/21 11:40 AB (Rec: 03/31/21 13:06 AB [email or web address]) PT Summary Assessment and Plan Potential Rehabilitation Potential Good Status of Condition at Evaluation Stable Summary Assessment Summary PT eval completed and no further PT intervention indicated at this time. pt stated that he started feeling better in the ED. pt is independent with bed mobility, transfers and ambulation without AD and able to do stairs without rails. pt has his ex- as her caregiver. informed nurse regarding pt's mobility and d/c from PT. Frequency of Treatment Frequency Of Treatment Discharge Precautions Other Precautions seizure precaution Recommendations To Nursing Amount of Assist Needed Independent Discharge Recommendations PT Discharge Recommendations Home with Assistance Transportation Needs at Discharge Private Vehicle
--- NOTE | 2021-03-31 12:04 | PC.NURSE ---
Dayshift Note: Pt with mildly delayed responses and slight slurred speech. NIH stroke scale 1 for slurred speech. Pt reports that this is his baseline since original documented CVAs in 2017. Pt otherwise oriented. Pt had cognitive eval with speech pathology with significant cognitive deficit and STML. Lungs CTA, RA, SPO2 98%. Pt with a smoker's cough, pt reports that he is not coughing anything up at this time. HRR, no edema, pt denies chest pain and pressure. VS WNL. Pt denies nausea, good appetite. BM this shift. Abdomen non-tender. Pt with no MSK deficits. Pt walked with PT and she reported no deficits in balance or gait. Call light within reach, bed alarm on and functioning. Pt asked to call for assistance with transfers. Will continue to monitor, notify MD with changes.
--- NOTE | 2021-03-31 13:52 | OT.IP.EVAL ---
Past Medical History (Last Updated 03/31/21 @ 04:22 by KIRA Baldwin) Adopted CVA (cerebral vascular accident) Seizure disorder Surgical History (Last Updated 03/31/21 @ 04:22 by KIRA Baldwin) H/O inguinal hernia repair H/O umbilical hernia repair Occupational Therapy Inpatient Evaluation/Re-Eval M1 PT/OT-IP Prior Functional Status Start: 03/31/21 12:51 Freq: NEEDED Status: Active Protocol: Document 03/31/21 13:54 [facility] (Rec: 03/31/21 14:08 [facility] [id number]) Medical Review Prior Functional Status Medical History Reviewed Yes Communication able to make needs known Mobility and Gait pt stated that he is independent with all mobilities and ambulation without AD Activities of Daily Living and IADL's Pt states independent with all needs and still drives. Social History Household Members children,friend(s) Living Arrangements RV Number of Floors (Floors) One Floor Number of Stairs To Enter/Railing? pt stated that he lives on a trailer and has 3 steps with B rail to enter Home Environment Standard Height Toilet,Tub/ Shower Home Equipment Hand Held Shower Additional Social History Comment stated that his ex- is his caregiver M2 OT-IP Current Condition Start: 03/31/21 13:53 Freq: Status: Active Protocol: Document 03/31/21 13:54 [facility] (Rec: 03/31/21 14:08 [facility] [id number]) Occupational Therapy Current Condition Current Condition Evaluation Date 03/31/21 Treatment Diagnosis TIA Diagnosis Onset Date 04/01/21 M3 OT- IP Subjective and Pain Start: 03/31/21 13:53 Freq: Status: Active Protocol: Document 03/31/21 13:54 [facility] (Rec: 03/31/21 14:08 [facility] [id number]) OT- Subjective Occupational Therapy Visit Comments Patient Comments Pt agreed to do OT eval. OT Pain Assessment Pain When Pain Assessed At Rest Pain Present Pain Present Denied Pain M4 OT- IP ADL's Start: 03/31/21 13:53 Freq: Status: Active Protocol: Document 03/31/21 13:54 [facility] (Rec: 03/31/21 14:08 [facility] [id number]) OT [id number] Comments OT Self-Feeding Comments NOt at meal time. OT ADL-Grooming Comments OT Grooming Comments Not performed. OT ADL-Dressing General Eval Lower Body Dressing Ability Independent OT ADL-Toileting Comments OT Toileting Comments Pt states has been using the toilet independently in the room. OT ADL-Bathing Comments OT Bathing Comments Pt states to shower at home. M5 OT- IP IADL's Start: 03/31/21 13:53 Freq: Status: Active Protocol: Document 03/31/21 13:54 [facility] (Rec: 03/31/21 14:08 [facility] [id number]) OT-Instrumental Activities of Daily Living Home Safety Awareness Awareness of Need for Assistance at Home Good Awareness Medication Management Medication Management Caregiver Provides Supervision Money Management Money Management Caregiver Provides Assistance Meal Preparation Meal Preparation Caregiver Provides Assist Alterations Tailor Alterations Tailor Caregiver Provides Assist Driving Driving Concerns Identified Regarding Safety M6 OT- IP Functional Cognition Start: 03/31/21 13:53 Freq: Status: Active Protocol: Document 03/31/21 13:54 [facility] (Rec: 03/31/21 14:08 [facility] [id number]) Cognitive Factors Limiting Selfcare Function Cognitive Ability Level of Alertness Alert Patient Orientation Name,Place,Situation Attention Span Ability Capable of Focused Attention, Capable of Sustained Attention Ability to Follow Commands Able to Follow Multi-Step Commands Memory Description Short Term Impaired Safety Awareness No Deficits Noted Cognitive Tests SLUMS Per TRUCK DRIVER SALESPERSON , pt scored 11/30 on the SLUMS, please see TRUCK DRIVER SALESPERSON eval for details. Cognitive Comments Cognitive Assessment Comments Pt states has had decreased short term memory prior due to previous CVA's. Pt states uses an alarm to help him to recall taking his meds. In addition Cony, his ex- is his caregiver and able to assist him with all his needs to help him to remember. Pt states drives but does not have anyone in the car when he drives. Pt scored 140 seconds on [place] MAking Part B which scores way below for his age group, a score at the 50% is 62 seconds. Pt's score indicates mod deficits for visual attention, task switching, speed of processing , mental flexibility, and executive functioning. It was suggested pt not to drive at this time. Able to go over and give pt information sheet for short term memories strategies for pt. Pt wanting extra copies to give to his children. OT- Vision and Hearing OT- Hearing Assessment OT- Hearing Assessment WFL OT- Vision Assessment Visual Acuity Glasses All The Time M7 OT- IP Mobility and Balance Start: 03/31/21 13:53 Freq: Status: Active Protocol: Document 03/31/21 13:54 [facility] (Rec: 03/31/21 14:08 [facility] [id number]) OT- Bed Mobility Assessment Rolling Level of Assistance Independent Supine to Sit Supine to Sit Assist Independent Sit to Supine Sit to Supine Assist Independent OT-Transfer Assessment Sit to and From Stand Sit to and from Stand Independent Transfers Transfer Ability Independent Technique Transfer Destination Bed OT- Gait Assessment Comments Gait Ability Comments Pt able to move independently in the room. OT- Balance Assessment Sitting Balance and Reactions Static Sitting Balance Ability Normal Dynamic Sitting Balance Ability Normal M8 OT- IP Objective Assessments Start: 03/31/21 13:53 Freq: Status: Active Protocol: Document 03/31/21 13:54 [facility] (Rec: 03/31/21 14:08 [facility] [id number]) OT Gross Range of Motion Upper Extremity Range of Motion Assessment Within Functional Limits OT-Muscle Tone Assessment Muscle Tone WNL Yes M9 OT- IP Assessment and Plan Start: 03/31/21 13:53 Freq: Status: Active Protocol: Document 03/31/21 13:54 [facility] (Rec: 03/31/21 14:08 [facility] [id number]) OT Summary Assessment and Plan Potential Rehabilitation Potential Good Analytic Complexity at Evaluation Low Summary OT Impairments Functional Cognition Progress Towards Goals Progressing Toward Goals Assessment Summary Pt low complexity and here due to TIA. Pt appears to have returned to his baseline level and still having prior deficits of short term memory loss. OT able to give and go over short term memory information to pt. Pt has a caregiver,ex- that lives with him to assist to care for his cognitive needs especially. Therefore discharge pt for Ot services at this time. Goals OT-Other Goals Pt to be ablee to incorporate short term memories strategies on a daily basis. Days to Meet Goals 1 Frequency of Treatment Frequency Of Treatment Once a Day Treatment Plan OT Treatment Plan Patient/Family Education, Discharge Planning Discharge Recommendations OT Discharge Recommendations Home with Assistance Transportation Needs at Discharge Private Vehicle
--- NOTE | 2021-03-31 16:16 | ST.IPSLE ---
Visit Care Team Role Provider Type Xiomy Martin MD Emergency Provider Physician Referring Provider Specialty: Emergency Medicine Address: [address] [place] [address], [id number] Email: KIRA Baldwin Admit Provider Physician Attending Provider Specialty: Internal Medicine Address: [address] [place] [address], [id number] Email: [email or web address] Past Medical History (Last Updated 03/31/21 @ 04:22 by KIRA Baldwin) Adopted (Medical) CVA (cerebral vascular accident) (Medical) 2017, 7 events, 3 major Seizure disorder (Medical) Started 2019 Speech-Language Pathology Speech/Language Eval [facility] Adult Cognitive Linguistic Eval Start: 03/31/21 12:11 Freq: Status: Active Protocol: Document 03/31/21 12:12 HM (Rec: 03/31/21 12:36 HM [id number]) Adult Cognitive Linguistic Evaluation Session Time Visit Start Time 09:10 Visit Stop Time 09:30 Total Visit Minutes 20 Visit Information Visit Number 1 Setting Assessment Location Acute Care Visit Type Note Type Initial evaluation Patient Information Identification Type Name,ID Card Medical History Pt is a 36 y.o. male with a significant history of 7 CVAs in the last 2 years as well as a seizure disorder. He was admitted due to suspected TIA. Per medical record, caregiver reports slurred speech and left sided weakness as well as cognitive deficits. During this visit, pt reported occasional word-finding difficulty and remembering things, but no difficulty with swallowing. He lives with a full-time caregiver. Hearing Hearing Level Normal Subjective Patient Report Pt was sitting upright on bed throughout the evaluation. He was agreeable and cooperative. Mental Status Alert,Responsive,Cooperative Assessment Oral Motor Examination Completed Yes Results Slowed initiation of movement overall. Bilateral weakness noted in the velum. Tongue, jaw, and lips within functional limits. Informal Assessment Receptive Language Normal Yes Expressive Language Normal No Expressive Language Impairment(s) Expression of complex thoughts /ideas Pragmatic Language Normal No: Eye contact was intense with minimal blinking. Pragmatic Language Impairment(s) Flat affect Speech Normal Yes Cognition Normal No Cognitive Impairment(s) Short-term memory,Executive functioning,Reasoning,Thought organization Formal Assessment Standardized Test/Screener Type [facility] Mental Status ([facility]) Administration Complete Results The [facility] Mental Status (UMS) examination was given as an overall cognitive screen. Pt scored 11/30, indicating moderate-severe cognitive deficits. Areas of challenge included immediate and delayed recall of objects, remembering task instructions, and recall of details from a short story. His clock drawing resulted in disorganized numbers and the time was incorrect. Findings/Results Findings Pt presents with a moderate- severe cognitive deficit characterized by short-term/ working memory deficits. He also displayed poor executive functioning skills required to plan/monitor/adjust during task completion. At this time, it's unclear if and how these deficits have changed since prior to admittance. Cognitive Communication Deficits Self-awareness of Cognitive- Limited awareness (minimal Communication Deficits appreciation without specificity) Concomitant Factors Concomitant Factors Hemiplegia/hemiparesis Impact on Functioning Activity Limits/Particip.Rest. Mod: General Tasks and Demands Household Tasks Interpersonal Interactions Sev: Education Employment Safety Risks Sev: Being Left Alone at Home Reacting to Emergency Managing Medication Traveling Alone in Community Prognosis Prognosis Fair Based on Cognitive status,Comorbidities Plan of Care Patient/Caregiver Education Patient requires further education/training,Family/ caregivers require further education/training Short Term Goals Hugo will be referred for a neurospychological evaluation. Hugo will demonstrate use of external memory aids as needed. Discharge Recommendations Home with Home Health [facility] Clinical Instructor Line Start: 03/31/21 14:53 Freq: Status: Active Protocol: Document 03/31/21 16:12 MAUREENK (Rec: 03/31/21 16:12 [email or web address] [id number]) Clinical Instructor Signature Clinical Instructor Clinical Instructor Yes
== END 2021-03-31 16:34 | disposition home or self-care (01) ==
LOC: ED 01:24 → AC 02:50 → ICU 03:44
PROVIDERS: Admitting Provider Nurse Practitioner Family; Emergency Provider Emergency Medicine; Referring Provider Emergency Medicine; Visit Provider Nurse Practitioner Family
DX: R29.818 Other symptoms and signs involving the nervous system (principal); R29.810 Facial weakness; R53.1 Weakness; R42 Dizziness and giddiness; R47.1 Dysarthria and anarthria; R51.9 Headache, unspecified; Z86.73 Personal history of transient ischemic attack (TIA), and cerebral infarction without residual deficits; G40.909 Epilepsy, unspecified, not intractable, without status epilepticus; F17.210 Nicotine dependence, cigarettes, uncomplicated; F12.90 Cannabis use, unspecified, uncomplicated; Z20.822 Contact with and (suspected) exposure to COVID-19
CPT/HCPCS: 36415; 36592; 70496; 70498; 70548; 70553; 80053; 80061; 80305; 81003; 83036; 83735; 85025; 87635; 87797; 92523; 93005; 93306; 96372; 97161; 97165; 99284; 99285; C9803; G0378; J1650; Q9967